=== PATIENT | male | born 1955 | race African-American/Black ===

== ENCOUNTER 2017-01-20 09:15 | Emergency (ER) | payer SELFPAY ==
[2017-01-20 09:24] VITALS: BP 133/75; PULSE 67; TEMP 97.6; BMI 26.6
[2017-01-20] MEDS ORDERED: IBUPROFEN 600 MG TABLET (FP) PO ONE ×2 (10:16→10:19)
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
== END 2017-01-20 11:31 | disposition home or self-care (01) ==
LOC: JERFT 09:15
DX: S80.12XA Contusion of left lower leg, initial encounter (principal); V73.6XXA Passenger on bus injured in collision with car, pick-up truck or van in traffic accident, initial encounter; Y92.412 Parkway as the place of occurrence of the external cause; Y93.89 Activity, other specified; Y99.0 Civilian activity done for income or pay
CPT/HCPCS: 99281-25